=== PATIENT | female | born 1990 | race Caucasian/White ===

== ENCOUNTER → 2017-11-30 | Outpatient (REF) | payer OTHER | LOC: M SFHCLERA 11:12 | DX: Z53.8 Procedure and treatment not carried out for other reasons (principal) ==

== ENCOUNTER → 2018-01-24 | Outpatient (REF) | payer OTHER, MEDICAID ==
[2018-01-24 17:50] LABS: HEMATOCRIT 40.7 % (36.0-47.0); HEMOGLOBIN 13.2 g/dl (12.0-15.5); MEAN CORPUSCULAR HEMOGLOBIN 27.8 pg (27.0-33.0); MEAN CORPUSCULAR HGB CONC 32.4 g/dl (32.0-36.5); MEAN CORPUSCULAR VOLUME 85.9 fl (80.0-96.0); PLATELET COUNT, AUTOMATED 325 10^3/uL (150-450); RED BLOOD COUNT 4.74 10^6/uL (4.00-5.40); RED CELL DISTRIBUTION WIDTH 13.9 % (11.5-14.5); WHITE BLOOD COUNT 7.4 10^3/uL (4.0-10.0)
[2018-01-24 18:00] LABS: INR 0.92; PROTHROMBIN TIME 12.4 SECONDS (12.1-14.4)
== END ==
LOC: M SFHCLERA 14:21
DX: R23.8 Other skin changes (principal)

== ENCOUNTER → 2018-05-03 | Outpatient (REF) | payer OTHER, MEDICAID | LOC: M SFHCLERA 15:32 | DX: N39.0 Urinary tract infection, site not specified (principal) | CPT/HCPCS: 87086 ==

== ENCOUNTER → 2018-11-20 | Outpatient (REF) | payer OTHER, MEDICAID ==
[~2018-11-20] MED LIST: IBUP-1114 PO; LEVE15SO2 PO; LEVE250T5 PO; MAPA500T2 PO; PRENTAB40 PO
[2018-11-20 20:18] LABS: HEMOGLOBIN 12.3 g/dl (12.0-15.5)
[2018-11-20 20:29] LABS: PERCENT SATURATION 18.2 % (13.2-45.0)
== END ==
LOC: M SFHCLERA 15:02
PROVIDERS: ATTEND Family Medicine
DX: K13.0 Diseases of lips (principal)
CPT/HCPCS: 82728; 83550; 85014; 85018; G0463

== ENCOUNTER 2019-08-17 13:34 | Emergency (ER) | payer MEDICAID, OTHER ==
[~2019-08-17] VITALS: Ht 165.1 cm; Wt 72.7 kg
[2019-08-17 14:46] LABS: INFLUENZA A AMPLIFICATION NEGATIVE (NEGATIVE); INFLUENZA B AMPLIFICATION NEGATIVE (NEGATIVE)
[2019-08-17] MEDS ORDERED: ACETAMINOPHEN 325 MG TAB PO ONE (15:15)
[2019-08-17 15:22] VITALS: BP 114/63
== END 2019-08-17 15:23 | disposition home or self-care (01) ==
LOC: M ED 13:34
DX: B34.9 Viral infection, unspecified (principal)

== ENCOUNTER → 2020-03-03 | Outpatient (REF) | payer OTHER, MEDICAID ==
[2020-03-03 18:15] LABS: BASO # 0.1 10^3/uL (0.0-0.2); BASO % 1.1 % (0.0-1.0); EOS # 0.1 10^3/uL (0.0-0.5); HEMATOCRIT 40.8 % (36.0-47.0); HEMOGLOBIN 13.4 g/dl (12.0-15.5); LYMPH # 1.7 10^3/uL (1.5-5.0); LYMPH % 31.5 % (24.0-44.0); MEAN CORPUSCULAR HEMOGLOBIN 28.3 pg (27.0-33.0); MEAN CORPUSCULAR HGB CONC 32.8 g/dl (32.0-36.5); MEAN CORPUSCULAR VOLUME 86.3 fl (80.0-96.0); MONO # 0.6 10^3/uL (0.0-0.8); MONO % 10.9 % (0.0-5.0); NEUTROPHILS % 54.3 % (36.0-66.0); PLATELET COUNT, AUTOMATED 294 10^3/uL (150-450); RED BLOOD COUNT 4.73 10^6/uL (4.00-5.40); WHITE BLOOD COUNT 5.5 10^3/uL (4.0-10.0)
[2020-03-03 18:29] LABS: ALBUMIN 4.2 GM/DL (3.2-5.2); ALT/SGPT 23 U/L (12-78); BILIRUBIN,TOTAL 0.4 MG/DL (0.2-1.0); BLOOD UREA NITROGEN 7 MG/DL (7-18); CALCIUM LEVEL 9.5 MG/DL (8.5-10.1); CARBON DIOXIDE LEVEL 25 MEQ/L (21-32); CHLORIDE LEVEL 105 MEQ/L (98-107); CHOLESTEROL LEVEL 189 MG/DL (<200); CHOLESTEROL RISK RATIO 3.315 (<5); CREATININE FOR GFR 0.92 MG/DL (0.55-1.30); FREE T4 0.94 NG/DL (0.76-1.46); GLOMERULAR FILTRATION RATE > 60.0 (>60); GLUCOSE, FASTING 68 MG/DL (70-100); HDL CHOLESTEROL 57 MG/DL (>40); LDL CHOLESTEROL 102 MG/DL (<100); NON-HDL-C 132 MG/DL; POTASSIUM SERUM 4.2 MEQ/L (3.5-5.1); SODIUM LEVEL 137 MEQ/L (136-145); TOTAL 25(OH) VITAMIN D 22.5 NG/ML (30.0-100.0); TOTAL PROTEIN 7.8 GM/DL (6.4-8.2); TRIGLYCERIDES LEVEL 151 MG/DL (<150)
== END ==
LOC: M LAB REF 17:22
PROVIDERS: ATTEND Physician Assistant
DX: Z00.00 Encounter for general adult medical examination without abnormal findings (principal); G24.8 Other dystonia; R32 Unspecified urinary incontinence; E66.3 Overweight; Z68.28 Body mass index [BMI] 28.0-28.9, adult; F43.10 Post-traumatic stress disorder, unspecified